=== PATIENT | female | born 1980 | race Caucasian/White ===

== ENCOUNTER 2021-01-23 08:33 | Outpatient (CLI) | payer MEDICARE, MEDICAID | END 2021-01-23 23:59 | disposition home or self-care (01) | LOC: CARD 08:33 | PROVIDERS: ATTEND Psychiatry & Neurology Neurology | DX: G40.909 Epilepsy, unspecified, not intractable, without status epilepticus (principal) | CPT/HCPCS: 95819 ==

== ENCOUNTER → 2021-05-04 | Outpatient (CLI) | payer MEDICARE, MEDICAID | END | disposition home or self-care (01) | LOC: CFH 08:50 | PROVIDERS: ATTEND Internal Medicine | DX: R91.8 Other nonspecific abnormal finding of lung field (principal) | CPT/HCPCS: 71250 ==

== ENCOUNTER 2021-05-21 07:39 | Emergency (ER) | payer MEDICARE, MEDICAID ==
[~2021-05-21] VITALS: Ht 142.2 cm; Wt 61.8 kg
[2021-05-21] MEDS ORDERED: SODIUM CHLORIDE 0.9% 1,000ML IVBOLUS ONE (08:30)
[2021-05-21] MEDS ORDERED: LORazepam 2 MG/ML, 1ML IV ONE (08:30)
[2021-05-21] MEDS ORDERED: ONDANSETRON 2MG/ML, 2ML IVPush ONE (08:30)
[2021-05-21] MEDS ORDERED: SODIUM CHLORIDE FLUSH 10ML SYR IVF ONE (08:30)
[2021-05-21] MEDS ORDERED: ONDANSETRON 2MG/ML, 2ML ONE (08:35)
[2021-05-21] MEDS ORDERED: LORazepam 2 MG/ML, 1ML ONE (08:37)
[2021-05-21 08:43] LABS: BASOPHILS % (AUTO) 0 % (0-1); EOSINOPHILS % (AUTO) 0 % (1-7); LYMPHOCYTES % (AUTO) 17 % (22-44); MEAN CORPUSCULAR HEMOGLOBIN 29.1 pg (27.0-34.8); MEAN CORPUSCULAR HGB CONC 33.4 g/dL (32.4-35.8); MEAN PLATELET VOLUME 10.5 fL (7.4-10.4); MONOCYTES % (AUTO) 4 % (2-9); NEUTROPHILS % (AUTO) 79 % (42-75); PLATELET COUNT 256 x10^3/uL (130-400); RED BLOOD COUNT 3.97 x10^6/uL (3.82-5.3); RED CELL DISTRIBUTION WIDTH 14.2 % (9.6-15.2)
[2021-05-21 08:51] LABS: ALANINE AMINOTRANSFERASE 30 U/L (12-78); ANION GAP 10 mmol/L (5-15); CALCIUM 9.2 mg/dL (8.5-10.1); CHLORIDE 107 mmol/L (98-107); CREATININE 0.59 mg/dL (0.55-1.02)
[2021-05-21 08:55] LABS: ALKALINE PHOSPHATASE 125 U/L (45-117); BILIRUBIN,TOTAL 0.5 mg/dL (0.2-1.0); TOTAL PROTEIN 8.2 g/dL (6.4-8.2); TROPONIN I < 0.015 ng/mL (0.000-0.045)
[2021-05-21] MEDS ORDERED: MAALOX/HYOSCYAMINE/LIDOCAINE 45 ML BTL PO ONE (09:00)
--- NOTE | 2021-05-21 09:00 | NUR ---
PT STATES WOKE UP THIS AM AT 0400 WITH NAUSEA AND VOMITING AND CHEST PAIN ON AND OFF. PT HOOKED UP TO MENTAL HEALTH PROFESSIONAL, O2 AND BP AND WILL CONTINUE TO MONITOR
[2021-05-21 09:33] VITALS: BP 103/72
[2021-05-21] MEDS ORDERED: MAALOX/HYOSCYAMINE/LIDOCAINE 45 ML BTL ONE (09:38)
--- NOTE | 2021-05-21 10:30 | NUR ---
PT TOLERATED GI COCKTAIL AND MEDICATION. PT STATES FEEL MUCH BETTER AND IS NOT CRYING.
--- NOTE | 2021-05-21 10:49 | NUR ---
Patient given discharge instructions and they have confirmed that they understand the instructions. Patient ambulatory with steady gait.
== END 2021-05-21 11:01 | disposition home or self-care (01) ==
LOC: ED 10:58
DX: K52.9 Noninfective gastroenteritis and colitis, unspecified (principal); E86.0 Dehydration; R11.2 Nausea with vomiting, unspecified; I11.0 Hypertensive heart disease with heart failure; I50.9 Heart failure, unspecified; I48.91 Unspecified atrial fibrillation; E11.9 Type 2 diabetes mellitus without complications; E78.00 Pure hypercholesterolemia, unspecified; J44.9 Chronic obstructive pulmonary disease, unspecified
CPT/HCPCS: 36415; 80053; 83690; 84484; 85025; 93005; 96374; 96375; 99284; J2060; J2405; J7030; 96361

== ENCOUNTER 2021-07-03 22:20 | Emergency (ER) | payer MEDICARE, MEDICAID ==
[~2021-07-03] VITALS: Ht 142.2 cm; Wt 58.6 kg
[2021-07-03] MEDS ORDERED: ALBUTEROL/IPRATROPIUM 2.5MG/0.5MG, 3 ML NPPB ONE (22:30)
[2021-07-03] MEDS ORDERED: methylPREDNISolone SOD SUCC 125 MG/2 ML IV ONE (22:30)
[2021-07-03] MEDS ORDERED: LORazepam 2 MG/ML, 1ML IVPush ONE (22:30)
[2021-07-03] MEDS ORDERED: SODIUM CHLORIDE FLUSH 10ML SYR IVF ONE (22:30)
[2021-07-03] MEDS ORDERED: MORPHINE SULFATE 4 MG/ML, 1ML IVPush PRN (22:30)
[2021-07-03] MEDS ORDERED: methylPREDNISolone SOD SUCC 125 MG/2 ML ONE (22:33)
[2021-07-03] MEDS ORDERED: MORPHINE SULFATE 4 MG/ML, 1ML ONE (22:34)
[2021-07-03] MEDS ORDERED: ALBUTEROL/IPRATROPIUM 2.5MG/0.5MG, 3 ML ONE (22:34)
[2021-07-03] MEDS ORDERED: LORazepam 2 MG/ML, 1ML ONE (22:36)
[2021-07-03 23:01] LABS: BASOPHILS % (AUTO) 1 % (0-1); EOSINOPHILS % (AUTO) 1 % (1-7); LYMPHOCYTES % (AUTO) 26 % (22-44); MEAN CORPUSCULAR HEMOGLOBIN 29.5 pg (27.0-34.8); MEAN CORPUSCULAR HGB CONC 33.9 g/dL (32.4-35.8); MEAN PLATELET VOLUME 10.6 fL (7.4-10.4); MONOCYTES % (AUTO) 4 % (2-9); NEUTROPHILS % (AUTO) 69 % (42-75); PLATELET COUNT 64 x10^3/uL (130-400); RED BLOOD COUNT 3.15 x10^6/uL (3.82-5.3); RED CELL DISTRIBUTION WIDTH 14.7 % (9.6-15.2)
[2021-07-03 23:10] LABS: ALANINE AMINOTRANSFERASE 30 U/L (12-78); ALBUMIN 3.5 g/dL (3.4-5.0); ANION GAP 5 mmol/L (5-15); CALCIUM 9.2 mg/dL (8.5-10.1); CHLORIDE 107 mmol/L (98-107); CREATININE 0.63 mg/dL (0.55-1.02)
[2021-07-03 23:14] LABS: ALKALINE PHOSPHATASE 123 U/L (45-117); BILIRUBIN,TOTAL 0.2 mg/dL (0.2-1.0); TOTAL PROTEIN 7.4 g/dL (6.4-8.2); TROPONIN I < 0.015 ng/mL (0.000-0.045)
[2021-07-03 23:32] VITALS: BP 113/48
--- NOTE | 2021-07-03 23:33 | NUR ---
Pt brought in by EMS from home for new onset shortness of breath, respiratory distress. Pt chronically on 4L NC for hx of CHF, COPD, Asthma, lung nodules. Pt has en extensive cardiac hx. Pt endorses midsternal chest pain, bilateral leg swelling, urinary retention x3 days. Per EMS, pt had audible crackles in left lung, and diminshed in bases of R. Pt is alert and oriented x4, GCS 15 and presents with at bedside. Pt was able to ambulate to bathroom independently, w/o any increase in respiratory distress.
[2021-07-04] MEDS ORDERED: ONDANSETRON 2MG/ML, 2ML ONE (00:27)
[2021-07-04] MEDS ORDERED: ONDANSETRON 2MG/ML, 2ML IVPush ONE (00:30)
--- NOTE | 2021-07-04 00:46 | NUR ---
Pt ambulatory to bathroom w/ steady gait.
--- NOTE | 2021-07-04 01:00 | NUR ---
Patient/Caregiver given discharge instructions and they have confirmed that they understand the instructions. Patient ambulatory with steady gait. NAD, all questions answered appropriately, denies additional needs at this time. No personal belongings left in room after discharge.
== END 2021-07-04 01:06 | disposition home or self-care (01) ==
LOC: ED 22:34
DX: J44.1 Chronic obstructive pulmonary disease with (acute) exacerbation (principal); R06.00 Dyspnea, unspecified; R07.89 Other chest pain; I11.0 Hypertensive heart disease with heart failure; I50.9 Heart failure, unspecified; E11.9 Type 2 diabetes mellitus without complications; J44.9 Chronic obstructive pulmonary disease, unspecified; I48.91 Unspecified atrial fibrillation; F17.200 Nicotine dependence, unspecified, uncomplicated
CPT/HCPCS: 36415; 71045; 80053; 83880; 84484; 85025; 93005; 94640; 96374; 96375; 99285; J2060; J2270; J2405; J2930